=== PATIENT | female | born 1975 ===

== ENCOUNTER 2024-10-02 06:30 | Day surgery (SDC) | payer OTHER ==
[2024-09-26 08:33] VITALS: BP 101/70
[2024-09-26 08:35] LABS: BASO % 0.4 % (0.1-1.2); EOS # 0.16 (0.04-0.54); EOS % 2.3 % (0.7-7.0); HEMATOCRIT 42.3 % (34.1-44.9); LYMPH # 2.21 (1.18-3.74); LYMPH % 31.2 % (19.3-53.1); MEAN CORPUSCULAR HEMOGLOBIN 29.9 pg (25.6-32.2); MONO # 0.62 (0.24-0.82); MONO % 8.8 % (4.7-12.5); NEUT # 4.04 (1.56-6.13); PLATELET COUNT 417 K/uL (163-369); RED BLOOD COUNT 4.69 M/uL (3.93-5.22); RED CELL DISTRIBUTION WIDTH 13.6 % (11.6-14.4)
[2024-09-26 08:52] LABS: COVID-19 AG NEGATIVE (NEGATIVE)
[2024-09-26 09:05] LABS: PARTIAL THROMBOPLASTIN TIME 30.2 SECONDS (22.0-34.0); PROTHROMBIN TIME 10.9 SECONDS (9.0-11.5)
[2024-09-26 09:06] LABS: PH,URINE 6.5 (5.0-8.0); URINE APPEARANCE Clear; URINE BILIRRUBIN Negative (NEGATIVE); URINE BLOOD Negative; URINE COLOR Yellow; URINE KETONE Trace (NEGATIVE); URINE LEUKOCYTE Negative; URINE NITRATE Negative; URINE PROTEIN Negative (NEGATIVE); URINE UROBILINOGEN 0.2 E.U./dl
[2024-09-26 09:10] LABS: URINE BACTERIA 922.7 uL (0.0-1933); URINE EPITHELIAL CELLS 18.5 uL (0.0-38.8); URINE RBC 24.7 uL (0.0-20.8); URINE WBC 10.7 uL (0.0-23.2)
[2024-09-26 09:12] LABS: URINE CAST 0.58 uL (0.0-1.40); URINE GLUCOSE 500 MG/DL (NEGATIVE)
[2024-09-26 09:24] LABS: ALBUMIN 4.2 gm/dL (3.4-5.0); BILIRUBIN TOTAL 0.37 mg/dL (0.3-1.2); CALCIUM 10.1 mg/dL (8.5-10.1); CREATININE SERUM 0.7 mg/dL (0.55-1.02); GFR 88.94; GLOBULINA 4.1 G/DL (2.4-3.5); POTASSIUM 4.21 mEq/L (3.5-5.1); TOTAL PROTEIN 8.3 gm/dL (6.4-8.2)
[~2024-10-02] VITALS: Ht 170.2 cm; Wt 82.6 kg
[~2024-10-02 06:30] MED LIST: HYDRODIURIL12.5 MG PO; JARDIANCE25 MG PO; ROSUVASTATIN CA10 MG PO
[2024-10-02] MEDS ORDERED: CHLORHEXIDINE GLUCONATE 120 ML BOTTLE TOP ONE (11:59)
== END 2024-10-02 18:05 | disposition home or self-care (01) ==
LOC: CIR.AMB 06:30
PROVIDERS: ATTEND Obstetrics & Gynecology Gynecology
DX: N95.0 Postmenopausal bleeding (principal); Z91.041 Radiographic dye allergy status